=== PATIENT | female | born 2005 | race Caucasian/White ===

== ENCOUNTER 2024-01-03 09:35 | Emergency (ER) | payer OTHER, SELFPAY ==
[2024-01-03 09:40] VITALS: BP 128/81
--- NOTE | 2024-01-03 10:10 | ED.GENMED ---
History of Present Illness
General
Chief Complaint: Urinary Symptoms
Time Seen by Provider: 01/03/24 10:03
History of Present Illness
History of Present Illness:
18 yo otherwise healthy female presents for evaluation of urinary urgency, hematuria, and suprapubic pressure x 1 week. Also notes that her urine is 'foul smelling'. Went to urgent care however was referred to ED due to hematuria. Denies flank pain,
fevers, chills or sweats. Denies concern for STI.
Past History
Past History
ED Past Medical History: Psychiatric
Social History
Tobacco: Non-smoker
Alcohol: None
Drug: None
Review of Systems
Review of Systems
Allergies reviewed?: Yes
All Other Systems: ROS reviewed and negative except as documented in HPI and ROS
Phy Exam
Physical Exam
Physical Exam:
GEN: Well appearing, NAD, WDWN
HEENT: Oral mucosa moist, no scleral icterus
Cardiac: Regular rate
Lung: No respiratory distress, no tachypnea
MSK: No gross deformity or injuries
Skin: Good color, no pallor or jaundice, no rashes
Neuro: AO x3, moves all extremities freely
Psych: Calm, cooperative
Course
Orders/Labs/Results
Orders:
Orders
01/03/24 10:12
Test Result ONCE
01/03/24 10:21
HCG, Urine Qualitative Screen Urgent
Date Specimen was Collected: 01/03/24
Time Specimen was Collected: 10:17
Urinalysis Reflex To Culture Urgent
Date Specimen was Collected: 01/03/24
Time Specimen was Collected: 10:17
Urine Microscopic Reflex Cult Urgent
Urine Culture Urgent
GRACE Source: U
Specimen Description:
Date Specimen was Collected: 01/03/24
Time Specimen was Collected: 10:17
Abnormal Lab Results
01/03/24
10:21
Ur Occult Blood Reflex 3+ A
(Negative)
Leukocyte Esterase Rfl 2+ A
(Negative)
Urine RBC 16-20 A /HPF
(0-2)
Urine WBC (Reflex) 50-60 A /HPF
(0-5)
Urine Albumin (Reflex) 1+ A
(Neg - Trace)
Vital Signs
Initial and Last Documented VS:
Initial Vital Signs
Temp Pulse Resp BP Pulse Ox
98.7 F 62 18 128/81 100
01/03/24 09:40 01/03/24 09:40 01/03/24 09:40 01/03/24 09:40 01/03/24 09:40
Last Documented Vital Signs
Temp Pulse Resp BP Pulse Ox
98.7 F 62 18 128/81 100
01/03/24 09:40 01/03/24 09:40 01/03/24 09:40 01/03/24 09:40 01/03/24 09:40
MDM/Problems Addressed
MDM/Problems Addressed:
Patient has no flank pain that would be suspicious for pyelonephritis or kidney stone. Will treat Empirically with nitrofurantoin
*Critical Care Note
Total Time (30-74mins, 75-104mins- exclusive of procedures): Not Applicable
ED Attending Note
-
Portions of this chart may have been created with voice recognition software.� Occasional wrong word or��sound alike� substitutions may have occurred due to the inherent limitations of voice recognition software.
Discharge Plan
Departure
Patient Disposition: Home (Routine Discharge)
Date of Disposition: 01/03/24
Time of Disposition: 10:50
Patient with high blood pressure during this ER visit?: No
Discharge Problem:
Urinary tract infection
Instructions: Urinary Tract Infection, Adult (DC)
Prescriptions:
New
nitrofurantoin macrocrystal 100 mg capsule
100 mg PO BID 5 Days Qty: 10 0RF
Referrals:
NONE,* [Family Provider] -
Interventions
Interventions:
*Risk Screen - Suicide Last Done: 01/03/24 09:43
*General Assessment Last Done: 01/03/24 09:43
*Neglect/Abuse Screening Last Done: 01/03/24 09:43
ED- Fall Risk Assessment Last Done: 01/03/24 10:51
*ED COVID-19 Vaccine History Last Done: 01/03/24 10:51
*Nursing Disposition Last Done: 01/03/24 10:51
ED-Female Genitourinary Assessment Last Done: 01/03/24 10:26
Discharge Date and Time
Discharge Date/Time: 01/03/24 10:51
Print Language: PORTUGUESE
[2024-01-03 10:34] LABS: HCG, Urine Qualitative Screen Negative
[2024-01-03 10:36] LABS: Urine Albumin 1+ (Neg - Trace); Urine Bilirubin Negative (Negative); Urine Character Very Cloudy (Clear); Urine Color Yellow; Urine Glucose Negative (Negative); Urine Ketone Negative (Negative); Urine Leukocyte 2+ (Negative); Urine Nitrite Negative (Negative); Urine Occult Blood 3+ (Negative); Urine Specific Gravity 1.015 (<1.030); Urine Urobilinogen Negative (Neg - 1+)
[2024-01-03 11:26] LABS: Urine Amorphous Seen
[2024-01-03 11:27] LABS: Urine Red Blood Cell 16-20 /HPF (0-2)
[2024-01-03 11:28] LABS: Urine White Cell 50-60 /HPF (0-5)
== END 2024-01-03 10:51 | disposition home or self-care (01) ==
LOC: EMR 09:35
PROVIDERS: Physician Assistant; EMERGENCY PHYSICIAN Student in an Organized Health Care Education/Training Program
DX: N39.0 Urinary tract infection, site not specified (principal)
CPT/HCPCS: 99283; 81003; 81015; 81025; 87077; 87086; 87186

== ENCOUNTER 2024-01-27 06:42 | Emergency (ER) | payer OTHER, SELFPAY ==
[2024-01-27 06:45] VITALS: BP 127/64
--- NOTE | 2024-01-27 07:54 | ED.GENMED ---
Addendum entered and electronically signed by Delon Andrea PA-C 01/29/24 07:54:
Pulmonary urine culture shows greater than 100,000 colony-forming units of coagulase-negative Staphylococcus. Patient on cefdinir. Sensitivities pending
Original Note:
History of Present Illness
General
Chief Complaint: Abdominal Pain
Source: patient
Time Seen by Provider: 01/27/24 07:40
History of Present Illness
History of Present Illness:
18yoF with a history of depression presenting with her significant other for evaluation of back and abdominal pain x 4 days. She reports pain throughout her lower abdomen and back. Pain is described as a constant dull pain. The pain improved
yesterday but worsened again today. She is also experiencing urinary frequency. She had an episode of urinary incontinence this morning which prompted her to come to the ED. She denies any fevers, chills, vomiting, diarrhea, constipation, vaginal
bleeding, vaginal discharge, saddle anesthesia, weakness. LMP 2 weeks ago. No previous abdominal or back surgeries. No history of IVDU.
Past History
Past History
ED Past Medical History: Psychiatric
Social History
Tobacco: Non-smoker
Alcohol: None
Drug: None
Phy Exam
General Physical Exam
General Presentation: well appearing and no apparent distress
General age: appears stated age
General Skin: warm and dry
General Habitus: normal
General Mental: alert
General Hydration: appears well hydrated
Cardiovascular Exam
Cardiovascular Exam: regular rate/rhythm, no edema and no murmur
Pulmonary Exam
Pulmonary Exam: lungs clear, no respiratory distress, no crackles and no wheezing
Gastrointestinal Exam
Gastrointestinal Exam: soft, non distended and tender (+Suprapubic tenderness. No guarding or rebound. )
Rectal Exam: normal external exam, normal sphincter tone and other (Rectal tone intact. Normal perirectal sensation.)
Neurological Exam
Neurological Exam: alert and other (5/5 strength in bilateral lower extremities)
Skin Exam
Skin Exam: normal color and warm/dry
Psychiatric Exam
Psychiatric Exam: normal mood/affect
Course
Orders/Labs/Results
Orders:
Orders
01/27/24 07:53
CT Abd/pel W Iv And Oral Contr Urgent
Comment:
Reason For Exam: Lower abd pain, back pain
Bladder Scan- Treatment ONCE
Comment: Postvoid residual
Iohexol [Omnipaque] See Protocol PO NOW STA
Test Result ONCE
01/27/24 08:20
Complete Blood Count/With Diff Urgent
Comprehensive Metabolic Panel Urgent
HCG, Serum Qualitative Screen Urgent
Lipase Urgent
Urinalysis Reflex To Culture Urgent
Date Specimen was Collected: 01/27/24
Time Specimen was Collected: 07:56
Urine Microscopic Reflex Cult Urgent
Urine Culture Urgent
GRACE Source: U
Specimen Description:
Date Specimen was Collected: 01/27/24
Time Specimen was Collected: 07:56
Abnormal Lab Results
01/27/24
08:20
Neutrophils % 76.9 H %
(42.2-75.2)
Lymphocytes % 16.5 L %
(20.5-51.1)
Leukocyte Esterase Rfl 1+ A
(Negative)
Urine WBC (Reflex) 30-40 A /HPF
(0-5)
Urine Bacteria (Reflex) Few A
(Negative)
Urine Albumin (Reflex) 1+ A
(Neg - Trace)
01/27/24 08:20
01/27/24 08:20
Vital Signs
Initial and Last Documented VS:
Initial Vital Signs
Temp Pulse Resp BP Pulse Ox
98.2 F 60 16 127/64 99
01/27/24 06:45 01/27/24 06:45 01/27/24 06:45 01/27/24 06:45 01/27/24 06:45
Last Documented Vital Signs
Temp Pulse Resp BP Pulse Ox
98.2 F 64 16 117/60 97
01/27/24 06:45 01/27/24 10:03 01/27/24 06:45 01/27/24 10:03 01/27/24 10:03
MDM/Problems Addressed
Differential Diagnosis Includes:
18yoF here with lower back and abdominal pain x 4 days. Associated with urinary frequency and had an episode of urinary incontinence this morning. No saddle anesthesia, weakness, or hx of IVDU. She is afebrile and hemodynamically stable. She is well
appearing in no distress. No signs of peritonitis on abdominal exam. Rectal tone is normal. Differential diagnosis includes but is not limited to: UTI, pyelonephritis, appendicitis, musculoskeletal, doubt cauda equina
Initial ED plan: Check abdominal labs, UA, and CT abdomen. Check postvoid residual.
*Critical Care Note
Total Time (30-74mins, 75-104mins- exclusive of procedures): Not Applicable
Update Note
Update Note:
PVR 7cc. Labs unremarkable including normal white count, glucose, renal function. UA with 30-40 WBC consistent with infection. CT shows mild diffuse bladder wall thickening with mucosal hyperenhancement in the bladder/L renal pelvis. Suspect
symptoms are 2/2 UTI. Patient was treated earlier this month for a UTI with Macrobid. Urine culture from 01/03/24 grew out pansensitive E.coli. Will prescribe cefdinir. Advised f/u with PCP and ED return precautions discussed. She was discharged in
stable condition.
ED Attending Note
-
Portions of this chart may have been created with voice recognition software.� Occasional wrong word or��sound alike� substitutions may have occurred due to the inherent limitations of voice recognition software.
Discharge Plan
Departure
Patient Disposition: Home (Routine Discharge)
Date of Disposition: 01/27/24
Time of Disposition: 11:03
Patient with high blood pressure during this ER visit?: No
Discharge Problem:
Urinary tract infection
Instructions: Urinary Tract Infection, Adult ED
Prescriptions:
New
cefdinir 300 mg capsule
300 mg PO BID Qty: 14 0RF
No Action
nitrofurantoin macrocrystal 100 mg capsule
100 mg PO BID 5 Days Qty: 10 0RF
Referrals:
UNKNOWN - PT DOES,NOT KNOW [Family Provider] -
Activity Restrictions/Additional Instructions:
Take antibiotics as prescribed. Drink plenty of fluids and hydrate.
Please follow-up with your family doctor. Return to the ER with any worsening symptoms or fevers.
Interventions
Interventions:
*Risk Screen - Suicide Last Done: 01/27/24 06:45
*General Assessment Last Done: 01/27/24 08:00
*Neglect/Abuse Screening Last Done: 01/27/24 06:45
ED- Fall Risk Assessment Last Done: 01/27/24 08:00
*ED COVID-19 Vaccine History Last Done: 01/27/24 06:45
JT-Sipeef-Bmxfyhqsll Assessment Last Done: 01/27/24 08:00
Discharge Date and Time
Print Language: PERSIAN
[2024-01-27] MEDS: OMNIPAQUE 50 ML PO (08:03)
[2024-01-27 08:34] LABS: % Basophils 0.4 % (0-2); % Eosinophils 0.8 % (0-6); % Immature Granulocytes 0.4 % (0-0.5); % Lymphocytes 16.5 % (20.5-51.1); % Neutrophils 76.9 % (42.2-75.2); Absolute Eosinophils 0.1 10^3/uL (0-0.7); Absolute Lymphocytes 1.4 10^3/uL (1.2-3.4); Absolute Monocytes 0.4 10^3/uL (0.1-0.6); Absolute Neutrophils 6.5 10^3/uL (1.4-6.5); Hematocrit 38.7 % (37.0-47.0); Hemoglobin 13.4 g/dL (12.0-16.0); Mean Corp Hgb Conc. 34.6 g/dL (33.0-37.0); Mean Corpuscular Hgb 30.2 pg (27.0-31.0); Mean Corpuscular Volume 87.4 fL (81.0-99.0); Mean Platelet Volume 9.4 fL (7.4-10.4); Nucleated Red Blood Cells % 0 %; Platelet Count 240 10^3/uL (130-400); Red Blood Cell Count 4.43 10^6/uL (4.20-5.40); White Blood Cell Count 8.4 10^3/uL (4.8-10.8)
[2024-01-27 08:35] VITALS: BP 114/60
[2024-01-27 09:09] LABS: HCG, Serum Qualitative Screen Negative
[2024-01-27 09:14] LABS: AST (SGOT) 22 U/L (14-36); Albumin 4.6 g/dl (3.5-5.0); Alkaline Phosphatase 77 U/L (38-126); Blood Urea Nitrogen 10 mg/dl (7-17); Carbon Dioxide 25 mmol/L (22-30); Chloride 101 mmol/L (98-107); Glucose 99 mg/dl (70-99); Potassium 4.5 mmol/L (3.5-5.1); Sodium 139 mmol/L (135-145); Total Bilirubin 0.5 mg/dl (0.2-1.3); eGFR > 60.00
[2024-01-27 09:23] LABS: Urine Albumin 1+ (Neg - Trace); Urine Bilirubin Negative (Negative); Urine Character Clear (Clear); Urine Color Yellow; Urine Glucose Negative (Negative); Urine Ketone Negative (Negative); Urine Leukocyte 1+ (Negative); Urine Nitrite Negative (Negative); Urine Occult Blood Negative (Negative); Urine Specific Gravity 1.005 (<1.030); Urine Urobilinogen Negative (Neg - 1+)
[2024-01-27 09:25] LABS: ALT (SGPT) 14 U/L (0-35); Calcium 9.9 mg/dl (8.4-10.2); Lipase 170 U/L (23-300)
[2024-01-27 10:03] VITALS: BP 117/60
[2024-01-27 10:27] LABS: Urine Amorphous Seen; Urine Red Blood Cell 0-2 /HPF (0-2); Urine White Cell 30-40 /HPF (0-5)
[2024-01-27 10:28] LABS: Urine Bacteria Few (Negative)
== END 2024-01-27 11:05 | disposition home or self-care (01) ==
LOC: EMR 06:42
PROVIDERS: Physician Assistant; EMERGENCY PHYSICIAN Emergency Medicine
DX: N39.0 Urinary tract infection, site not specified (principal); R32 Unspecified urinary incontinence; B95.8 Unspecified staphylococcus as the cause of diseases classified elsewhere; R10.30 Lower abdominal pain, unspecified; M54.9 Dorsalgia, unspecified; F32.A Depression, unspecified
CPT/HCPCS: 99284; 51798; 74177; 80053; 81003; 81015; 83690; 84703; 85025; 87086; 87147; Q9967